=== PATIENT | female | born 1975 | race Caucasian/White ===

== ENCOUNTER 2020-12-21 15:11 | Emergency (ER) | payer OTHER ==
[2020-12-21] MEDS ORDERED: HYDROCODONE/APAP 5/325 MG TAB ONE (16:34)
[2020-12-21] MEDS ORDERED: ONDANSETRON 4 MG (ODT) TAB ONE (16:35)
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
[2020-12-21 18:37] VITALS: TEMP 98.6
[2020-12-21 18:40] VITALS: BP 122/92; O2SAT 100
== END 2020-12-21 18:19 | disposition home or self-care (01) ==
LOC: ER 15:11
DX: F07.81 Postconcussional syndrome (principal); S16.1XXA Strain of muscle, fascia and tendon at neck level, initial encounter; R21 Rash and other nonspecific skin eruption; V49.40XA Driver injured in collision with unspecified motor vehicles in traffic accident, initial encounter
CPT/HCPCS: 70450; 72125; 99284